=== PATIENT | female | born 1940 | race Caucasian/White ===

== ENCOUNTER 2020-04-29 11:13 | Observation (INO) | payer MEDICARE ==
[~2020-04-29] VITALS: Ht 165.1 cm; Wt 66.4 kg
[~2020-04-29 11:13] MED LIST: CHLORTHALIDONE25 MG PO; LISINOPRIL10 MG PO; OMEPRAZOLE40 MG PO; PROVENTIL HFA6.7 GM INH; RANITIDINE HCL150 MG PO
[2020-04-29] MEDS ORDERED: DICLOFENAC SOD100 G1 TOP (11:21)
[2020-04-29] MEDS ORDERED: COMBIVENT RESPIM4 GM INH (11:21)
[2020-04-29] MEDS ORDERED: CYCLOBENZAPRINE10 MG PO (11:22)
[2020-04-29] MEDS ORDERED: LATANOPROST2.5 ML OU (11:22)
[2020-04-29] MEDS ORDERED: FLUTICASONE PRO16 GM NAS (11:22)
[2020-04-29] MEDS ORDERED: METHOCARBAMOL750 MG PO (11:23)
[2020-04-29] MEDS ORDERED: LEVETIRACETAM500 MG PO (11:23)
--- NOTE | 2020-04-29 12:30 | NUR ---
PATIENT WAS INCOTINENT OF STOOL. STOOL IS NOTED TO BE WATERY. PATIENTS BEDDING CHANGED, PATIENT CLEANED UP AND PROVIDED WITH CLEAN GOWN. PATIENT STATED "THIS HAPPENS SOMETIMES, MY STOMACH STARTS RUMBLING AND THEN I JUST HAVE TO GO". PATIENT IS BACK IN BED RESTING. PATIENT DENIES ANY PAIN OR NAUSEA AT THIS TIME. CALL LIGHT IN REACH.
--- NOTE | 2020-04-29 16:05 | NUR ---
80YR OLD WOMAN ADMITTED FROM ER VIA W/C TO ROOM 109, PT IS ALERT/ORIENTED, PLEASANT, ABLE TO STAND AND TRANSFER WITH SBA TO BED, DENIES PAIN OR NAUSEA. ORIENTED TO ROOM AND CALL LIGHT. ORDERS NOTED.
--- NOTE | 2020-04-29 16:56 | NUR ---
PT SITTING UP IN BED. ALERT AND ORIENTED. DENIES PAIN AND N/V. EDUCATION GIVEN ON THE USE OF NG TUBE. PT VERBALIZED UNDERSTANDING. ASSESSMENT COMPLETE. WATIING ON MD ORDERS.
[2020-04-29] MEDS ORDERED: LISINOPRIL20 MG PO (17:03)
--- NOTE | 2020-04-29 18:41 | NUR ---
MD IN ROOM. XRAY IN THE MORNING. PT STANDBY TO THE BATHROOM. TOLERATED WELL. PT DENIES PAIN AND N/V. REPOSITIONED IN BED. CALL LIGHT IN REACH.
--- NOTE | 2020-04-29 19:20 | NUR ---
RECEIVED REPORT FROM MARYBETH, MASON. pt RESTING IN BED. BED ALARM ON. DENIES NEEDS AT THIS TIME. DISCUSSED MEDS. CALL LIGHT WITHIN REACH.
--- NOTE | 2020-04-29 20:10 | NUR ---
pt UP TO VOID AND BACK TO BED, SBA. pt TALKED THROUGHOUT ASSESSMENT. DENIED PAIN AT THIS TIME. REQUESTED A NICOTINE PATCH, APPLIED TO LEFT SHOULDER. MEDICATIONS GIVEN (SEE MAR). CALL LIGHT WITHIN REACH.
--- NOTE | 2020-04-29 21:20 | NUR ---
IV PUMP ALARMING. IVF INFUSING WNL. pt REFUSES ADDITIONAL IV SITE OTHER THAN AC AT THIS TIME. IV SITE WRAPPED WITH TOWEL AND COBAN TO ASSIST WITH pt KEEPING ARM STRAIGHT. CALL LIGHT IN REACH. NO ADDITIONAL REQUESTS.
--- NOTE | 2020-04-29 22:23 | NUR ---
PATIENT ASSISTED TO THE RESTROOM A SBA. PATIENT WAS INCONTINENT OF STOOL IN THE BED. PATIENT ALSO HAD LARGE LIQUID BM. PATIENT WAS ALSO ABLE TO VOID. PATIENT IS NOW BACK IN BED RESTING. PATIENTS BED ALARM IS ON FOR SAFETY. CALL LIGHT WITHIN REACH. PATIENT DENIES ANY PAIN OPR NAUSEA. NO FURTHER NEEDS NOTED.
--- NOTE | 2020-04-29 22:52 | NUR ---
PATIENT GIVEN SCHEDULED TYLENOL PER ORDER. PATIENT ASSISTED TO THE RESTROOM A SBA. PATIENT HAD SMALL LOOSE BM. PATIENT IS NOW BACK IN BED RESTING. PATIENT DENIES ANY NEEDS AT THIS TIME. PATIENT DENIES ANY PAIN. CALL LIGHT AND BELONGINGS WITHIN REACH.
--- NOTE | 2020-04-30 01:57 | NUR ---
PATIENT ASSISTED WITH REPOSITIONING IN BED. PATIENTS VITALS TAKEN AND RECORDED. PATIENTS INTAKE AND OUPUT RECORDED. PATIENT DENIES ANY [AIN OR NAUSEA. PATIENT DENIES ANY FURTHER NEEDS. CALL LIGHT IN REACH. ALARM ON FOR SAFETY.
--- NOTE | 2020-04-30 04:41 | NUR ---
PATIENT ASSISTED TO THE RESTROOM A SBA. PATIENT WAS ABLE TO VOID. PATIENT IS BACK IN BED RESTING. BED ALARM ON FOR SAFETY. PATIENT DENIES ANY NEEDS AT THIS TIME. ASSESMENT COMPLETED. CALL LIGHT AND BELONGINGS ARE WITHIN REACH.
--- NOTE | 2020-04-30 05:34 | NUR ---
PATIENTS MORNING MEDICATIONS GIVEN PER ORDER. PATIENT DENIES ANY PAIN OR NAUSEA. PATIENTS VITALS TAKEN AND RECORDED. PATIENTS IN TAKE AND OUPUT RECORDED. PATIENT DENIES ANY NEEDS AT THIS TIME. CALL LIGHT AND BELONGINGS WITHIN REACH. BED ALARM ON FOR SAFETY.
--- NOTE | 2020-04-30 05:35 | NUR ---
PATIENT RESTED ON AND OFF THROUGHOUT THE NIGHT. PATIENT DENIED AND PAIN OR NAUSEA DURING THIS SHIFT. PATIENT IS A SBA. PATIENT IS NPO AT THIS TIME. PATIENT IS ON RA. PATIENT HAS IV INFUSING PER ORDER. PATIENT HAS BED ALARM ON FOR SAFETY SHE FORGETS TO CALL AT TIMES. PATIENT IS AAOX4. PATIENT HAD MULTIPLE LIQUID STOOLS AND WAS INCOTINENT OF STOOL.
--- NOTE | 2020-04-30 08:04 | NUR ---
REPORT RECIEVED. PT IN BED WITH EYES CLOSED. RESPIRATIONS EQUAL AND NONLABORED. LR INFUSING AT 85ML/HR. CALL LIGHT IN REACH.
[2020-04-30] MEDS ORDERED: LORAZEPAM0.5 MG PO (08:55)
--- NOTE | 2020-04-30 09:00 | NUR ---
THIS NURSE ALERTED BY INTERNAL COMMUNICATIONS WRITER PT WANTS TO LEAVE AMA AND IS GETTING DRESSED. PT IS BECOMING MORE IRRITATED AND HOSTILE TOWARDS STAFF CALLING STUDENT NURSE . INAPPROPRIATE NAMES AND YELLING "GET OUT OF MY ROOM". PT REQUESTING DOCTOR TO BEDSIDE TP DISCUSS LEAVING. PT REPORTING STAFF IS TREATING HER POORLY BECAUSE THERE WAS A ABSORBANT PAD WAS PLACED ON BED TO PREVENT PT FROM SOILING LINENS IF INCONTINENCE SHOULD OCCUR. PT REQUESTING COUGH SYRUP WELL. DR BUCHANAN CALLED WITH NO ANSWER. OR CHARGE NURSE AND MERGERS AND ACQUISITIONS CONSULTANT NOTIFIED TO NOTIFY DR BUCHANAN OF PT WANTING TO LEAVE AMA. VERBAL ORDERS GIVEN FOR REGULAR DIET TO BE TRIALED SINCE PT IS HAVING NO NAUSEA/VOMITING. PT ABLE TO CALM DOWN AND LISINOPRIL AND KEPPRA WERE ADMINSTERED ALL OTHERS WERE REFUSED, (SEE MAR). AT BEDSIDE ANDASSISTED IN CONVINSING PT IT IS HER BEST INTEREST TO STAY. AMA FORM AND RISKS OF LEAVING AGAINST MEDICAL ADVICE DISCUSSED WITH PT AND . PT IS VERY UNINTERESTED. ASSESSMENT COMPLETED AND SITTING WITH PATIENT TO HELP DISTRACT FROM LEAVING BEFORE SEEING MD. PT SEEMS TO CALM DOWN AND DESIDES TO TAKE A NAP. REPROTS PT HAS DEMENTIA AND HAS EPISODES LIKE THIS FREAQUENTLY.
[2020-04-30] MEDS ORDERED: ZYRTEC10 MG PO (10:03)
[2020-04-30] MEDS ORDERED: TYLENOL325 MG PO (10:05)
[2020-04-30] MEDS ORDERED: ADULT ASPIRIN R81 MG PO (10:06)
[2020-04-30] MEDS ORDERED: CARBOXYMETHYLCE15 ML OU (10:09)
[2020-04-30] MEDS ORDERED: ARTIFICIAL TEAR15 M6 OP (10:09)
--- NOTE | 2020-04-30 10:41 | NUR ---
DR BUCHANAN TO FLOOR TO ROUND ON PT. DISCHARGE PLAN DISCUSSED.
--- NOTE | 2020-04-30 10:45 | NUR ---
Spoke with patient and her spouse Darío. Pt is upset and does not want to answer questions. She is wanting to discharge, but is in surgery. Darío answers most questions. They live in [facility] and are here visiting the [employer] [facility] They live in a 1 story home without steps. Pt uses a walker when she is at the [place]. Denies other DME. Pt is part of [facility] and this where she has her medication filled. Plans on dc as soon as possible. Denies needs. Pt is a smoker, but states she was given a nicotine patch last night and this has helped.
[2020-04-30] MEDS ORDERED: NICOTINE1 EAC2 TD (10:46)
[2020-04-30] MEDS ORDERED: TRAZODONE HCL50 MG PO (10:57)
--- NOTE | 2020-04-30 10:58 | NUR ---
MED REC COMPLETE
--- NOTE | 2020-04-30 11:55 | NUR ---
DISCHARGE INSTRUCTIONS PROVIDED. PT AND WITH NO QUESTIONS, INTRUCTED TO FOLLOW UP WITH PRIMARY CARE DR IN 7-10 DAYS. DISCUSSED S/SX TO WATCH FOR WORSENING BOWEL OBSTRUCTION. QUESTIONS ANSWERED. ROLL SETTER REMOVED IV AND VITALS WERE STABLE.
--- NOTE | 2020-04-30 15:23 | HP ---
[facility] [address], [place] [address] Signed ADMISSION DATE: 04/29/2020 REASON FOR ADMISSION: Possible bowel obstruction. HISTORY OF PRESENT ILLNESS: This 80-year-old white woman is admitted through the emergency room after evaluation by Dr. Buitrago for presumed small-bowel obstruction based on a CT scan performed through the emergency room after evaluation earlier in the day. [facility] she lives in the [facility] and makes visits here several times a week apparently for that purpose with her . The patient was not feeling well and had an episode suggestive of syncope, but not particularly true passing out, but not feeling well and somewhat disoriented. It was very brief and transient. She was transferred by EMS services, awake and alert, complained of nausea and abdominal pain and with urge for diarrhea. The patient had nausea. She never did vomit particularly. Evaluation in the emergency room included clinical examination, which showed an elevated creatinine of 2.25 with a BUN of 27. A CT scan of the abdomen was performed showing a probable partial small-bowel obstruction and she was admitted on that basis. PAST MEDICAL HISTORY: Does include a percutaneous aneurysm repair with bifurcated graft by Dr. Glover in the [facility]. She does undergo every 6-month followup CT scans to follow the graft. She has had right knee surgery, bilateral hand operations, neck surgery, tonsillectomy, hysterectomy, and cataract surgery. She does not drink alcohol nor use any drugs. She does smoke on a daily basis. 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 The patient has had no focal neurologic deficit of any sort or any recurrence of symptoms of feeling lightheaded or weak. The patient declined having a nasogastric tube when attempted by personnel on the [place]. MEDICATIONS: At admission include: Electronically Signed By: DOC BUCHANAN MD 04/30/20 1523 PATIENT NAME: CRAIG JUAREZ HISTORY AND PHYSICAL DATE OF : 40 REPORT #: [id number] PHYSICIAN: DOC BUCHANAN MD PCP: NO PRIMARY CARE PHYSICIAN REPORT IS CONFIDENTIAL AND NOT TO BE RELEASED WITHOUT AUTHORIZATION [facility] [address], [place] [address] Signed 1. Diclofenac. 2. Combivent inhaler. 3. Cyclobenzaprine. 4. Flexeril. 5. Fluticasone inhaler. 6. Latanoprost ophthalmic solution daily. 7. Methocarbamol daily. 8. Levetiracetam 500 mg daily. 9. Zantac 150 b.i.d. 10. Omeprazole 20 mg daily. 11. Lisinopril 10 mg daily. 12. Chlorthalidone 25 mg daily. 13. Albuterol metered-dose inhaler as needed for shortness of breath. REVIEW OF SYSTEMS: She denies any shortness of breath or chest pain. Has had no hematemesis or blood per rectum. Her current situation is vague right-sided abdominal pain. PHYSICAL EXAMINATION: GENERAL: This is a dark complected white woman, who does not look acutely ill at this time. HEENT: Mucous membranes reasonably moist. Trachea is midline. CHEST: Clear. HEART: Regular. ABDOMEN: Obese, but soft. There is no focal mass or tenderness. EXTREMITIES: Show no clubbing, cyanosis, or edema. LABORATORY STUDIES: Showed a white count of only 5.9 at admission, hematocrit of 38.2 with platelets 171,000. Electrolytes normal. Creatinine elevated at 2.25. Liver enzymes normal with alkaline phosphatase of 66, bilirubin 0.3, AST 13, ALT 7. Urinalysis was not available at the time of this review. Exam, I have reviewed the CT scan in detail. There do appear to be some dilated bowel loops including the stomach and understanding a bowel obstruction was considered likely. On the other hand, she has declined and refused any attempted nasogastric tube placement. She has yet to have any vomiting. She does have some gallstones seen on the gallbladder vision of the CT scan, but does not have acute cholecystitis that we can tell at this time. ASSESSMENT AND PLAN: Electronically Signed By: DOC BUCHANAN MD 04/30/20 1523 PATIENT NAME: CRAIG JUAREZ HISTORY AND PHYSICAL DATE OF : 40 REPORT #: [id number] PHYSICIAN: DOC BUCHANAN MD PCP: NO PRIMARY CARE PHYSICIAN REPORT IS CONFIDENTIAL AND NOT TO BE RELEASED WITHOUT AUTHORIZATION [address] [address] Signed Since she refused our NG tube, we will maintain simply IV fluids and monitoring. If this becomes an issue, we will have to discuss it again and I would probably have to put it in myself. In the morning, we will check an abdominal KUB. If it shows no evidence of progression of bowel obstruction or indeed if it shows resolution, then we will challenge with diet. Additionally, we will check lab studies in the morning including electrolytes as her creatinine is elevated higher than it has been in the past. This may be a residual effect of having had an aortic stent, though I do not know entirely what her baseline creatinine is prior to several years ago through this hospital. MD LUL Collier/MODL /[id number] cc: Dr. Hankins [facility] Copies: ~ Electronically Signed By: DOC BUCHANAN MD 04/30/20 1523 PATIENT NAME: CRAIG JUAREZ HISTORY AND PHYSICAL DATE OF : 40 REPORT #: [id number] PHYSICIAN: DOC BUCHANAN MD PCP: NO PRIMARY CARE PHYSICIAN REPORT IS CONFIDENTIAL AND NOT TO BE RELEASED WITHOUT AUTHORIZATION
--- NOTE | 2020-04-30 22:01 | EKG ---
[facility] [address] [facility] [place] [address] Signed Normal sinus rhythm Abnormal QRS-T angle, consider primary T wave abnormality Abnormal ECG No previous ECGs available Confirmed by SHARRI MILES MD ([id number]) on 04/30/2020 10:01:32 PM Electronically Signed By: SHARRI MILES MD 04/30/202200 PATIENT NAME: CRAIG JUAREZ Electrocardiogram DATE OF : 40 PHYSICIAN: SHARRI MILES MD REPORT #: [id number] REPORT IS CONFIDENTIAL AND NOT TO BE RELEASED WITHOUT AUTHORIZATION
== END 2020-04-30 11:20 | disposition home or self-care (01) ==
LOC: ED 11:13 → MS 11:14
PROVIDERS: ADMIT Surgery; ATTEND Surgery
DX: K56.600 Partial intestinal obstruction, unspecified as to cause (principal); R55 Syncope and collapse; N28.9 Disorder of kidney and ureter, unspecified; K80.20 Calculus of gallbladder without cholecystitis without obstruction; I10 Essential (primary) hypertension; F17.200 Nicotine dependence, unspecified, uncomplicated; Z98.890 Other specified postprocedural states; Z20.822 Contact with and (suspected) exposure to COVID-19
CPT/HCPCS: 36415; 51701; 74018; 74176; 80053; 81001; 85025; 93005; 93010; 94760; 99285-25; J7121; U0003